=== PATIENT | female | born 1995 | race Caucasian/White ===

== ENCOUNTER 2019-04-19 19:44 | Inpatient (IN) | payer MEDICAID ==
[2019-04-19] MEDS: RINGERS SOLUTION,LACTATED 1,000 ML IV PRN ×2 (20:35→21:13)
--- NOTE | 2019-04-19 20:39 | Admission Physical ---
Datetime Report Generated by CPN: 04/19/2019 20:39 CURRENT ADMISSION Chief Complaint: Uterine Contractions Indication for Induction: Not Applicable Admit Impression : Term, Intrauterine ; Active Labor Admit Plan: Admit to Unit; Initiate Labor Protocol ALLERGIES Medication Allergies: No Medication Allergies: gluten (04/19/2019) Latex: No Latex Allergies OBSTETRICAL HISTORY EDC: 04/21/2019 00:00 : 1 Para: 0 Term: 0 : 0 SAB: 0 IAB: 0 Ectopic: 0 Livin Cesareans: 0 VBACs: 0 Multiple Births: 0 PHYSICAL EXAM General: Normal HEENT: Normal Neurologic: Normal Thyroid: Normal Heart: Normal Lungs: Normal Breast: Normal Back: Normal Abdomen: Normal Genitourinary Exam: Normal Extremities: Normal DTRs: Normal Pelvic Type: Adequate Vital Signs: Reviewed; Within Normal Limits VAGINAL EXAM Dilatation: 7-8 Effacement: 80 Station: -1 Contraction Comments: q 2-3 MEMBRANES Membranes: Intact FETUS A EGA: 39.5 Monitoring: External US FHR- Baseline: 120s Variability: Moderate 6-25bpm Accelerations: 15X15 Decelerations: None FHR Category: Category I Admit Comment: presents to L_D c/o contractions which started earlier today. She reports good movement. She is GBS Neg. Her cervical exam is 7-8 cm w/ a bulging bag of water. No co-morbitities. INFORMED CONSENT Signature: with User ID: [email or web address]
[2019-04-19 20:41] LABS: APPEARANCE,URINE CLEAR; BILIRUBIN,URINE NEGATIVE (NEGATIVE); COLOR,URINE YELLOW; GLUCOSE, URINE NEGATIVE (NEGATIVE); KETONES,URINE NEGATIVE (NEGATIVE); LEUKOCYTE ESTERASE,URINE SMALL (NEGATIVE); NITRITE,URINE NEGATIVE (NEGATIVE); PROTEIN,URINE NEGATIVE (NEGATIVE); URINE SPECIFIC GRAVITY 1.012; UROBILINOGEN,URINE NEGATIVE mg/dL (<2.0)
[2019-04-19 20:41] LABS: ABSOLUTE LYMPHOCYTES (AUTO) 1.5 10^3/uL (0.5-4.7); ABSOLUTE MONOCYTES (AUTO) 1.4 10^3/uL (0.1-1.4); ABSOLUTE NEUT (AUTO) 10.5 10^3/uL (1.7-8.2); BASOPHILS % (AUTO) 0.1 % (0-2); EOSINOPHILS % (AUTO) 0.3 % (0-6); HEMATOCRIT 36.2 % (36.0-47.0); HEMOGLOBIN 12.1 g/dL (12.0-15.5); LYMPHOCYTES % (AUTO) 11.2 % (13-45); MEAN CORPUSCULAR HEMOGLOBIN 27.2 pg (27.0-33.4); MEAN CORPUSCULAR HGB CONC 33.4 g/dL (32.0-36.0); MEAN CORPUSCULAR VOLUME 82 fl (80-97); MONOCYTES % (AUTO) 10.6 % (3-13); PLATELET COUNT 238 10^3/uL (150-450); RED BLOOD COUNT 4.44 10^6/uL (3.72-5.28); RED CELL DISTRIBUTION WIDTH 14.7 % (11.5-14.0); SEGMENTED NEUTROPHILS % (AUTO) 77.8 % (42-78); TOTAL CELLS COUNTED % (AUTO) 100 %; WHITE BLOOD COUNT 13.5 10^3/uL (4.0-10.5)
[2019-04-19 21:00] LABS: URINE AMPHETAMINES SCREEN NEGATIVE; URINE BARBITURATES SCREEN NEGATIVE; URINE BENZODIAZEPINES SCREEN NEGATIVE; URINE COCAINE SCREEN NEGATIVE; URINE MARIJUANA (THC) SCREEN NEGATIVE; URINE METHADONE SCREEN NEGATIVE; URINE PHENCYCLIDINE SCREEN NEGATIVE
[2019-04-19] MEDS ORDERED: MISOPROSTOL 0.2 MG TABLET ONE (21:01)
[2019-04-19] MEDS ORDERED: OXYTOCIN 10 UNIT/ML VIAL ONE (21:01)
[2019-04-19] MEDS ORDERED: OXYTOCIN/NORMAL SALINE 20 UNIT/1,000 ML RTUINJ ONE (21:02)
[2019-04-19] MEDS ORDERED: LIDOCAINE 1% INJ-PF (10 MG/ML) 30 ML SDV ONE (21:02)
[2019-04-19] MEDS ORDERED: FENTANYL CITRATE INJ/PF 100 MCG/2 ML AMPUL ONE (22:18)
[2019-04-19] MEDS ORDERED: PHENYLEPHRINE HCL INJ/PF 10 MG/1 ML SDV ONE (22:18)
[2019-04-19] MEDS ORDERED: EPHEDRINE SULFATE INJ 50 MG/1 ML AMPULE ONE (22:18)
[2019-04-19] MEDS ORDERED: FENTANYL/BUPIVACAINE/NS/PF 0 MCG/0 ML RTUINJ EPI ONE (22:19)
[2019-04-19] MEDS ORDERED: BUPIVACAINE HCL 0.25 % INJ/PF (2.5 MG/1 ML) 30 ML VIAL ONE (22:19)
[2019-04-19] MEDS ORDERED: DIBUCAINE 1% OINTMENT 56 GM TP PRN (22:59)
[2019-04-19] MEDS ORDERED: DIPH/PERTUSS(ACELL)/TETANUS VAC/PF 0.5 ML SYR (>=10YO) IM PRN (22:59)
[2019-04-19] MEDS ORDERED: OXYTOCIN/NORMAL SALINE 20 UNIT/1,000 ML RTUINJ IV PRN (22:59)
[2019-04-19] MEDS ORDERED: ACETAMINOPHEN WITH CODEINE #3 TABLET PO PRN ×2 (22:59)
[2019-04-19] MEDS ORDERED: BENZOCAINE/MENTHOL AEROSOL SPRAY 56 ML TOP PRN (22:59)
[2019-04-19] MEDS ORDERED: ZOLPIDEM TARTRATE 5 MG TABLET PO PRN (22:59)
[2019-04-19] MEDS ORDERED: IBUPROFEN 800 MG TABLET ONE (23:39)
--- NOTE | 2019-04-20 00:06 | Delivery Summary ---
Del Sum A-C Datetime Report Generated by CPN: 04/20/2019 00:05 DELIVERY PERSONNEL DELIVERY PERSONNEL: [id number] Delivery Doctor:: Mehreen Yost MD Labor and Delivery Nurse:: Merlyn Pickering RNash worker Nurse:: Lisha Nixon RN Nursery Nurse:: Tiffanie Zimmerman RN Clinic Manager/HVAC REFRIGERATION TECHNICIAN: Kiley Pino, MOGUL OPERATOR MATERNAL INFORMATION Delivery Anesthesia: None Medications After Delivery: Pitocin Drip 20 Units/1000ml NSS Delivery QBL: 50 Delivery QBL Comment: 50 ml Maternal Complications: None Provider Comments: of a viable male at 2240 w/ an OA presentation; APGARS 8, 9; 1st deg left vag lac LABOR SUMMARY EDC: 04/21/2019 00:00 No. Babies in Womb: 1 Attempted: No Labor Anesthesia: None LABOR INFORMATION Reason for Induction: Not Applicable Onset of Labor: 04/19/2019 20:14 Complete Dilatation: 04/19/2019 22:24 Oxytocin: N/A Group B Beta Strep: Negative Antibiotics # of Doses: 0 Antibiotics Time of Last Dose: N/A Name of Antibiotic Given: N/A Steroids Given: None Reason Steroids Not Administered: Not Applicable MEMBRANES Membranes Rupture Method: Artificial Rupture of Membranes: 04/19/2019 21:47 Length of Rupture (hr): 0.88 Amniotic Fluid Color: Clear Amniotic Fluid Amount: Small Amniotic Fluid Odor: Normal STAGES OF LABOR Stage 1 hr: 2 Stage 1 min: 10 Stage 2 hr: 0 Stage 2 min: 16 Stage 3 hr: 0 Stage 3 min: 6 Total Time in Labor hr: 2 Total Time in Labor min: 32 VAGINAL DELIVERY Episiotomy: None Laceration #1: Vaginal Laceration Extension #1: First Degree Laceration Repair: Yes Laceration Repair Note: 1st degree left vaginal lac repaired with 2-0 vicryl Sponge Count Correct: Yes Sharps Count Correct: Yes CSECTION DELIVERY Primary Indication: N/A Secondary Indication: N/A CSection Incidence: N/A Labor: N/A Elective: N/A CSection Incision: N/A BABY A INFORMATION Delivery Date/Time: 04/19/2019 22:40 Method of Delivery: Vaginal Born in Route : No : N/A Forceps: N/A Vacuum Extraction: N/A Shoulder Dystocia : No PRESENTATION/POSITION BABY A Presentation: Cephalic Cephalic Presentation: Vertex Vertex Position: Occipital Anterior Breech Presentation: N/A PLACENTA INFORMATION BABY A Placenta Delivery Time : 04/19/2019 22:46 Placenta Method of Delivery: Spontaneous Placenta Status: Delivered SCORES BABY A Heart Rate 1 min: >100 bpm Resp Effort 1 min: Good Cry Reflex Irritability 1 min: Cough or Sneeze or Pulls Away Muscle Tone 1 min: Active Motion Color 1 min: Blue/Pale Resuscitation Effort 1 min: Tactile Stimulation SCORE 1 MIN: 8 Heart Rate 5 min: >100 bpm Resp Effort 5 min: Good Cry Reflex Irritability 5 min: Cough or Sneeze or Pulls Away Muscle Tone 5 min: Active Motion Color 5 min: Body [place], Extremities Blue Resuscitation Effort 5 min: Tactile Stimulation SCORE 5 MIN: 9 INFANT INFORMATION BABY A Gestational Age at Delivery: 39.5 Gestational Status: Full Term- 39- 40.6 Weeks Infant Outcome : Liveborn Condition : Stable Infant Sex: Male IDENTIFICATION BABY A Verification Date/Time: 04/19/2019 23:13 ID Band Number: [id number] Mother's Name Verified: Yes RN Verifying Infant: , RN and R.Matthew, RN WEIGHT/LENGTH BABY A Birthweight (gm): 3583 Infant Weight (lb): 7 Infant Weight (oz): 14 Infant Length (in): 21.00 Length (cm): 53.34 CORD INFORMATION BABY A No. Cord Vessels: 3 Nuchal Cord : N/A Cord Blood Taken: Yes-For Storage (Mom's Blood type +) Infant Suction: Mouth ASSESSMENT BABY A Infant Complications: None Physical Findings at Delivery: Within Normal Limits Respirations: Appears Normal Skin to Skin: Yes Infant Care By: MJacky, RN Transferred To: Remains with Mother BABY B INFORMATION : N/A SIGNATURES Signature: with User ID: [email or web address]
[2019-04-20] MEDS ORDERED: LIDOCAINE 1% INJ-PF (10 MG/ML) 30 ML SDV ONE (00:58)
[2019-04-20] MEDS: IBUPROFEN 800 MG TABLET PO SCH ×3 (05:27→22:44)
[2019-04-20 06:54] LABS: HEMATOCRIT 33.1 % (36.0-47.0); MEAN CORPUSCULAR HEMOGLOBIN 27.2 pg (27.0-33.4); MEAN CORPUSCULAR HGB CONC 33.2 g/dL (32.0-36.0); MEAN CORPUSCULAR VOLUME 82 fl (80-97); PLATELET COUNT 209 10^3/uL (150-450); RED BLOOD COUNT 4.04 10^6/uL (3.72-5.28); RED CELL DISTRIBUTION WIDTH 14.5 % (11.5-14.0); WHITE BLOOD COUNT 16.8 10^3/uL (4.0-10.5)
--- NOTE | 2019-04-20 08:57 | PDOC PROGRESS REPORT ---
Subjective-OB Progress Note for:: 04/20/19 Subjective: Doing well, no c/o, baby in room, resting, voiding. mod lochia Physical Exam (OB) Vital Signs: Temp Pulse Resp BP Pulse Ox 97.4 F 76 H 136/68 H 98 04/20/19 02:35 04/20/19 02:35 04/20/19 02:35 04/20/19 02:35 Intake & Output 04/19/19 04/20/19 04/21/19 06:59 06:59 06:59 Intake Total 79 Balance 79 Weight 94 kg - Lochia Lochia Amount: Small 10-25 ml Lochia Color: Rubra/Red - Abdomen Description: Soft Hernia Present: No Fundal Description: Firm, Midline Fundal Height: u/u - u/2 Objective-Diagnostic Laboratory: 04/20/19 06:11 04/19/19 04/19/19 04/19/19 19:50 20:33 20:33 WBC 13.5 H RBC 4.44 Hgb 12.1 Hct 36.2 MCV 82 MCH 27.2 MCHC 33.4 RDW 14.7 H Plt Count 238 Seg Neutrophils % 77.8 Urine Color YELLOW Urine Appearance CLEAR Urine pH 7.0 Ur Specific [place] 1.012 Urine Protein NEGATIVE Urine Glucose (UA) NEGATIVE Urine Ketones NEGATIVE Urine Blood SMALL H Urine Nitrite NEGATIVE Ur Leukocyte Esterase SMALL H Blood Type B POSITIVE Antibody Screen NEGATIVE 04/20/19 06:11 WBC 16.8 H RBC 4.04 Hgb 11.0 L Hct 33.1 L MCV 82 MCH 27.2 MCHC 33.2 RDW 14.5 H Plt Count 209 Seg Neutrophils % Urine Color Urine Appearance Urine pH Ur Specific [place] Urine Protein Urine Glucose (UA) Urine Ketones Urine Blood Urine Nitrite Ur Leukocyte Esterase Blood Type Antibody Screen Assessment and Plan(PN) - Assessment and Plan (1) Obstetrical laceration, first degree Is this a current diagnosis for this admission?: Yes (2) Vaginal delivery Is this a current diagnosis for this admission?: Yes (3) Precipitate labor Is this a current diagnosis for this admission?: Yes - Time Spent with Patient Time with patient: Less than 15 minutes Medications reviewed and adjusted accordingly: Yes - Disposition Anticipated Discharge: Home Within: within 24 hours
[2019-04-20] MEDS: DOCUSATE SODIUM 100 MG CAPSULE PO SCH ×2 (09:16→18:09)
[2019-04-20] MEDS: PRENATAL VITAMIN W DHA CAPSULE PO SCH (09:16)
[2019-04-20] MEDS: SENNOSIDES/DOCUSATE 8.6-50 MG 1 EACH TABLET PO SCH (09:16)
[2019-04-20] MEDS: FERROUS SULFATE 325 MG TABLET PO SCH ×2 (09:16→18:09)
[2019-04-21] MEDS: IBUPROFEN 800 MG TABLET PO SCH (06:04)
[2019-04-21] MEDS: FERROUS SULFATE 325 MG TABLET PO SCH (09:02)
[2019-04-21] MEDS: DOCUSATE SODIUM 100 MG CAPSULE PO SCH (09:02)
[2019-04-21] MEDS: SENNOSIDES/DOCUSATE 8.6-50 MG 1 EACH TABLET PO SCH (09:02)
[2019-04-21] MEDS: PRENATAL VITAMIN W DHA CAPSULE PO SCH (09:02)
--- NOTE | 2019-04-21 10:33 | PDOC PROGRESS REPORT ---
Subjective-OB Progress Note for:: 04/21/19 Subjective: Doing well, ready to go home, voiding, scant bleeding, Physical Exam (OB) Vital Signs: Temp Pulse Resp BP Pulse Ox 97.7 F 72 18 122/55 L 100 04/21/19 07:25 04/21/19 07:25 04/21/19 07:25 04/21/19 07:25 04/21/19 07:25 Intake & Output 04/20/19 04/21/19 04/22/19 06:59 06:59 06:59 Intake Total 79 Balance 79 Weight 94 kg - PIH/Pre-Eclampsia DTR's: 2 + Clonus: Negative Headache: Absent Epigastric Pain: No Visual Changes: No - Lochia Lochia Amount: Scant < 10 ml Lochia Color: Rubra/Red - Abdomen Description: Soft Hernia Present: No Fundal Description: Firm, Midline Fundal Height: u/u - u/2 Objective-Diagnostic Laboratory: 04/20/19 06:11 Assessment and Plan(PN) - Assessment and Plan (1) Obstetrical laceration, first degree Is this a current diagnosis for this admission?: Yes (2) Vaginal delivery Is this a current diagnosis for this admission?: Yes (3) Precipitate labor Is this a current diagnosis for this admission?: Yes - Time Spent with Patient Time with patient: Less than 15 minutes Medications reviewed and adjusted accordingly: Yes - Disposition Anticipated Discharge: Home Within: within 24 hours
--- NOTE | 2019-04-21 10:36 | PDOC DISCHARGE SUMMARY ---
Impression - Admit/DC Date/PCP Admission Date/Primary Care Provider: 04/19/19 20:20 DENA MARROQUIN DO Discharge Date: 04/21/19 - Discharge Diagnosis (1) Obstetrical laceration, first degree Is this a current diagnosis for this admission?: Yes (2) Vaginal delivery Is this a current diagnosis for this admission?: Yes (3) Precipitate labor Is this a current diagnosis for this admission?: Yes - Additional Information Resuscitation Status: Full Code Discharge Diet: As Tolerated, Regular Discharge Activity: Activity As Tolerated, No Lifting Over 10 Pounds, No Lifting/Push/Pulling, Pelvic Rest Referrals: DENA LYN DO [Primary Care Provider] - (rtc 4 weeks) Home Medications: Vits96/Iron Fum/Folic [ Tablet] 1 each PO DAILY 04/19/19 Valacyclovir HCl [Valtrex 500 mg Tablet] 500 mg PO DAILY 04/20/19 HPI Gestational Age: 39.5 Reason(s) for Admission: Onset of Labor Procedures: Ultrasound Intrapartum Procedure(s): Spontaneous Vaginal Delivery Complication(s): Laceration-Vaginal Laceration-Degree: 1st - male infant, wt 7-14, apgars 8/9 Hospital Course Hospital Course: routine Results Laboratory Results: WBC 16.8 10^3/uL (4.0-10.5) H 04/20/19 06:11 RBC 4.04 10^6/uL (3.72-5.28) 04/20/19 06:11 Hgb 11.0 g/dL (12.0-15.5) L 04/20/19 06:11 Hct 33.1 % (36.0-47.0) L 04/20/19 06:11 MCV 82 fl (80-97) 04/20/19 06:11 MCH 27.2 pg (27.0-33.4) 04/20/19 06:11 MCHC 33.2 g/dL (32.0-36.0) 04/20/19 06:11 RDW 14.5 % (11.5-14.0) H 04/20/19 06:11 Plt Count 209 10^3/uL (150-450) 04/20/19 06:11 Lymph % (Auto) 11.2 % (13-45) L 04/19/19 20:33 Chambers % (Auto) 10.6 % (3-13) 04/19/19 20:33 Eos % (Auto) 0.3 % (0-6) 04/19/19 20:33 Baso % (Auto) 0.1 % (0-2) 04/19/19 20:33 Absolute Neuts (auto) 10.5 10^3/uL (1.7-8.2) H 04/19/19 20:33 Absolute Lymphs (auto) 1.5 10^3/uL (0.5-4.7) 04/19/19 20:33 Absolute Monos (auto) 1.4 10^3/uL (0.1-1.4) 04/19/19 20:33 Absolute Eos (auto) 0.0 10^3/uL (0.0-0.6) 04/19/19 20:33 Absolute Basos (auto) 0.0 10^3/uL (0.0-0.2) 04/19/19 20:33 Seg Neutrophils % 77.8 % (42-78) 04/19/19 20:33 Urine Color YELLOW 04/19/19 19:50 Urine Appearance CLEAR 04/19/19 19:50 Urine pH 7.0 (5.0-9.0) 04/19/19 19:50 Ur Specific [place] 1.012 04/19/19 19:50 Urine Protein NEGATIVE mg/dL (NEGATIVE) 04/19/19 19:50 Urine Glucose (UA) NEGATIVE mg/dL (NEGATIVE) 04/19/19 19:50 Urine Ketones NEGATIVE mg/dL (NEGATIVE) 04/19/19 19:50 Urine Blood SMALL (NEGATIVE) H 04/19/19 19:50 Urine Nitrite NEGATIVE (NEGATIVE) 04/19/19 19:50 Urine Bilirubin NEGATIVE (NEGATIVE) 04/19/19 19:50 Urine Urobilinogen NEGATIVE mg/dL (<2.0) 04/19/19 19:50 Ur Leukocyte Esterase SMALL (NEGATIVE) H 04/19/19 19:50 Urine Ascorbic Acid NEGATIVE (NEGATIVE) 04/19/19 19:50 Urine Opiates Screen NEGATIVE 04/19/19 19:50 Urine Methadone Screen NEGATIVE 04/19/19 19:50 Ur Barbiturates Screen NEGATIVE 04/19/19 19:50 Ur Phencyclidine Scrn NEGATIVE 04/19/19 19:50 Ur Amphetamines Screen NEGATIVE 04/19/19 19:50 U Benzodiazepines Scrn NEGATIVE 04/19/19 19:50 Urine Cocaine Screen NEGATIVE 04/19/19 19:50 U Marijuana (THC) Screen NEGATIVE 04/19/19 19:50 Blood Type B POSITIVE 04/19/19 20:33 Antibody Screen NEGATIVE 04/19/19 20:33 Plan Health Concerns: routine Plan of Treatment: routine Goals: routine Time Spent: Less than 30 Minutes
[2019-04-21 11:50] VITALS: BP 136/68
== END 2019-04-21 14:30 | disposition home or self-care (01) | DRG 807 ==
LOC: LC 19:44 → LR 20:20 → 2S 04-20
PROVIDERS: ADMIT Obstetrics & Gynecology; ATTEND Obstetrics & Gynecology
PROC: 10E0XZZ Delivery of Products of Conception, External Approach (ICD-10-PCS; principal; 2019-04-19)
DX: O62.3 Precipitate labor (principal); Z37.0 Single live birth; O70.0 First degree perineal laceration during delivery; Z3A.39 39 weeks gestation of pregnancy
CPT/HCPCS: 36415; 80307; 81005; 85025; 85027; 86592; 86850; 86900; 86901; J2370; J2590; J3010; J3490